=== PATIENT | male | born 1985 | race Caucasian/White ===

== ENCOUNTER 2018-04-29 12:18 | Emergency (ER) | payer MEDICARE, OTHER ==
[2018-04-29] MEDS ORDERED: ACETAMINOPHEN IV (For NPO) 1,000 MG in EMPTY BAG 1 BAG IVPB STA (12:22)
[2018-04-29] MEDS ORDERED: SODIUM CHLORIDE 0.9% 1,000 ML IV STA ×2 (12:22)
[2018-04-29] MEDS ORDERED: ceFAZolin 1,000 MG in DEXTROSE/WATER 1 50ML.BAG IVPB STA (12:22)
[2018-04-29] MEDS ORDERED: DIPH,PERTUS(ACELL)TETVAC-LF 0.5 ML VIAL IM ONE (12:22)
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
[2018-04-29 12:41] LABS: Glucose,Whole Blood 108 mg/dL (75-99)
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
[2018-04-29 13:05] LABS: Basophils % (A) 0 %; Eosinophils # (A) 0.5 k/uL (0-0.7); Eosinophils % (A) 7 %; HCT 36.8 % (39.0-53.0); HGB 12.8 gm/dL (13.0-17.5); Lymphocytes # (A) 1.7 k/uL (1.0-4.8); Lymphocytes % (A) 23 %; MCH 30.7 pg (25.0-35.0); MCHC 34.8 g/dL (31.0-37.0); MCV 88.2 fL (80.0-100.0); Monocytes # (A) 0.2 k/uL (0-1.0); Monocytes % (A) 3 %; Neutrophils # (A) 4.7 k/uL (1.3-7.7); Neutrophils % (A) 64 %; Platelet Count 134 k/uL (150-450); RBC 4.17 m/uL (4.30-5.90); RDW 12.8 % (11.5-15.5); WBC 7.3 k/uL (3.8-10.6)
[2018-04-29 13:14] LABS: ALT 45 U/L (21-72); AST 35 U/L (17-59); Albumin 3.8 g/dL (3.5-5.0); Alcohol <10 mg/dL; Alkaline Phosphatase 57 U/L (38-126); Amylase 70 U/L (30-110); Anion Gap 7 mmol/L; Blood Urea Nitrogen 13 mg/dL (9-20); Calcium 8.9 mg/dL (8.4-10.2); Carbon Dioxide 21 mmol/L (22-30); Chloride 111 mmol/L (98-107); Glucose 100 mg/dL (74-99); Lipase 29 U/L (23-300); Potassium 4.3 mmol/L (3.5-5.1); Sodium 139 mmol/L (137-145); Total Bilirubin 0.3 mg/dL (0.2-1.3); Total Protein 6.4 g/dL (6.3-8.2)
[2018-04-29 13:28] LABS: Creatine Kinase 74 U/L (55-170)
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
[2018-04-29] MEDS ORDERED: IBUPROFEN 800 MG TAB PO STA (13:38)
[2018-04-29] MEDS ORDERED: CEPHALEXIN 500 MG CAP PO STA (13:38)
[2018-04-29] MEDS ORDERED: ACETAMINOPHEN TAB 500 MG TAB PO STA (13:38)
[2018-04-29 13:41] LABS: Creatine Kinase MB 0.5 ng/mL (0.0-2.4); Troponin I <0.012 ng/mL (0.000-0.034)
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
[2018-04-29 14:11] VITALS: TEMP 98.2
[2018-04-29 14:13] LABS: Prothrombin Time 10.1 sec (9.0-12.0)
[2018-04-29 14:24] LABS: Partial Thromboplastin Time 21.3 sec (22.0-30.0)
--- NOTE | 2018-04-29 14:55 | XR ---
EXAMINATION TYPE: XR humerus LT DATE OF EXAM: 04/29/2018 COMPARISON: NONE HISTORY: Shoulder pain TECHNIQUE: 4 views FINDINGS: I see no fracture nor dislocation of the humerus. Glenohumeral joint is anatomic. Elbow mary nt appears intact. IMPRESSION: Normal left humerus.
--- NOTE | 2018-04-29 14:56 | XR ---
EXAMINATION TYPE: XR shoulder complete LT DATE OF EXAM: 04/29/2018 COMPARISON: NONE HISTORY: Shoulder pain TECHNIQUE: 3 views FINDINGS: There is nondisplaced comminuted midshaft fracture of the left clavicle. The glenohumeral j oint is anatomic. Scapula appears intact. IMPRESSION: Left clavicle comminuted fracture.
== END 2018-04-29 15:21 | disposition home or self-care (01) ==
LOC: EC 12:18
DX: S42.022A Displaced fracture of shaft of left clavicle, initial encounter for closed fracture (principal); S40.212A Abrasion of left shoulder, initial encounter; S70.312A Abrasion, left thigh, initial encounter; G40.909 Epilepsy, unspecified, not intractable, without status epilepticus; M79.7 Fibromyalgia; F41.9 Anxiety disorder, unspecified; Z23 Encounter for immunization; F17.210 Nicotine dependence, cigarettes, uncomplicated; Z79.899 Other long term (current) drug therapy; V23.4XXA Motorcycle driver injured in collision with car, pick-up truck or van in traffic accident, initial encounter; Y93.I9 Activity, other involving external motion; Y92.410 Unspecified street and highway as the place of occurrence of the external cause
CPT/HCPCS: 36415; 93005; 86900; 86901; 80053; 82150; 82550; 82553; 83605; 83690; 84484; 85025; 85610; 85730; 86850; 80320; 72170; 73030; 73060; 71045; 72125; 70450; 71250; 74176; 90715; 99285; 96365; 96375; 96361; 90471; J0690; J0131

== ENCOUNTER → 2023-10-06 | Outpatient (CLI) | payer MEDICARE, OTHER ==
[2023-10-06 15:39] LABS: HCT 40.1 % (39.6-50.0); HGB 13.4 g/dL (13.0-17.0); MCH 29.6 pg (27.0-32.0); MCHC 33.4 g/dL (32.0-37.0); MCV 88.5 FL (80.0-97.0); Mean Platelet Volume 12.7 FL (9.5-12.2); NRBC Per 100 WBC 0 X 10*3/uL (0.00-0.01); Platelet Count 166 X 10*3/uL (140-440); RBC 4.53 X 10*6/uL (4.40-5.60); RDW 13.1 % (11.5-14.5); WBC 5.37 X 10*3/uL (4.50-10.00)
[2023-10-06 16:54] LABS: Chol/HDL Ratio 3.94 Ratio; LDL Cholesterol,Calculated 75.6 mg/dL (0.0-131.0)
[2023-10-06 17:13] LABS: ALT 21 U/L (10-49); AST 30 U/L (14-35); Albumin 4.3 g/dL (3.8-4.9); Albumin/Globulin Ratio 1.48 Ratio (1.60-3.17); Alkaline Phosphatase 55 U/L (41-126); BUN/Creat Ratio 13.08 Ratio (12.00-20.00); Blood Urea Nitrogen 15.7 mg/dL (9.0-27.0); Calcium 9.5 mg/dL (8.7-10.3); Carbon Dioxide 20.7 mmol/L (21.6-31.8); Chloride 109 mmol/L (96-109); Globulin 2.9 g/dL (1.6-3.3); Glucose 89 mg/dL (70-110); Sodium 141 mmol/L (135-145); Total Bilirubin 0.4 mg/dL (0.3-1.2); Total Protein 7.2 g/dL (6.2-8.2)
== END | disposition home or self-care (01) ==
LOC: LABWHC1 09:20
PROVIDERS: ATTEND Family Medicine
DX: I10 Essential (primary) hypertension (principal); F11.20 Opioid dependence, uncomplicated
CPT/HCPCS: 36415; 80053; 80061; 85027

== ENCOUNTER → 2024-02-29 | Outpatient (CLI) | payer OTHER ==
--- NOTE | 2024-02-29 18:12 | XR ---
EXAMINATION TYPE: XR ankle complete LT DATE OF EXAM: 02/29/2024 COMPARISON: None HISTORY: Sprain TECHNIQUE: 3 view left ankle FINDINGS: No acute fracture or dislocation is evident. Ankle mortise is intact. Joint spaces are preserved. Soft tissues are normal. Follow up exams can be performed 7-10 days from acute trauma for continued pain IMPRESSION: 1. No acute osseous abnormality left ankle
--- NOTE | 2024-03-01 08:29 | XR ---
EXAMINATION TYPE: XR foot complete LT DATE OF EXAM: 02/29/2024 COMPARISON: None HISTORY: Sprain TECHNIQUE: 3 view left foot FINDINGS: No acute fracture or dislocation is evident. Joint spaces are preserved. Soft tissues are n ormal. Follow up exams can be performed 7-10 days from acute trauma for continued pain. IMPRESSION: 1. No acute osseous abnormality left foot
== END | disposition home or self-care (01) ==
LOC: RADXRMAIN 17:14
PROVIDERS: ATTEND Emergency Medicine
DX: S93.402A Sprain of unspecified ligament of left ankle, initial encounter (principal); S93.602A Unspecified sprain of left foot, initial encounter

== ENCOUNTER → 2024-03-21 | Outpatient (CLI) | payer MEDICARE, OTHER ==
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
== END | disposition home or self-care (01) ==
LOC: RADXRMAIN 15:48
PROVIDERS: ATTEND Emergency Medicine
DX: S93.402D Sprain of unspecified ligament of left ankle, subsequent encounter (principal); S93.602D Unspecified sprain of left foot, subsequent encounter

== ENCOUNTER 2024-03-31 12:32 | Observation (INO) | payer MEDICARE, OTHER ==
[2024-03-31] MEDS: LIDOCAINE 1%-EPI 1:100,000 20 ML VIAL SQ STA (13:14)
--- NOTE | 2024-03-31 13:21 | ED ---
General Adult HPI - General Chief complaint: Wound/Laceration Stated complaint: wrist laceration - L Time Seen by Provider: 03/31/24 13:19 Source: patient, EMS, RN notes reviewed Mode of arrival: EMS Limitations: no limitations - History of Present Illness Initial comments: 39-year-old male with a past medical history of IV drug abuse presented to the [facility] via EMS with a chief complaint of left wrist laceration. Patient states he would frequently inject in his left wrist and has a buildup of scar tissue in this area. He states 2 days ago while working on a vehicle he accidentally scraped the scar tissue and it started to excessively bleed. He has been applying pressure dressings. He states every time he would change the dressing blood with spray across the room. He states been consistently bleeding for the past 2 days brought him to the ER for evaluation. He denies any blood thinner use. He does state that his left hand started to swell up yesterday. He denies any fevers, chills,, lightheadedness, dizziness, chest pain, shortness of breath, abdominal pain or peripheral edema. - Related Data Home Medications Medication Instructions Recorded Confirmed Buprenorphine-Nalox 8-2 mg Tab 0.5 tab SUBLINGUAL DAILY@1200 03/31/24 03/31/24 [Suboxone 8-2 mg Tab] Buprenorphine-Nalox 8-2 mg Tab 1 tab PO BID 03/31/24 03/31/24 [Suboxone 8-2 mg Tab] Galcanezumab-Gnlm [Emgality Pen] 120 mg SQ DIRECTED 03/31/24 03/31/24 Latanoprost [Latanoprost 0.005%] 1 drop BOTH EYES HS 03/31/24 03/31/24 Naproxen Sodium [Aleve] 220 - 440 mg PO DAILY PRN 03/31/24 03/31/24 Pregabalin [Lyrica] 150 mg PO BID 03/31/24 03/31/24 Tylenol(Unknown Dose) 1 tab PO DAILY PRN 03/31/24 03/31/24 Allergies Allergy/AdvReac Type Severity Reaction Status Date / Time No Known Allergies Allergy Verified 03/31/24 13:28 Review of Systems ROS Statement: Those systems with pertinent positive or pertinent negative responses have been documented in the HPI. ROS Other: All systems not noted in ROS Statement are negative. Past Medical History Past Medical History: Fibromyalgia, Pneumonia, Seizure Disorder Additional Past Medical History / Comment(s): UMBILICAL HERNIA, SEIZURE DISORDER, STATES STOPPED TAKING DILANTIN, MIGRAINES, DEGENERATIVE DISC DISEASE, BULGING DISC History of Any Multi-Drug Resistant Organisms: None Reported Past Surgical History: No Surgical Hx Reported Additional Past Surgical History / Comment(s): VASECTOMY, umbilical hernia repair Past Anesthesia/Blood Transfusion Reactions: No Reported Reaction Past Psychological History: Anxiety, Depression Past Alcohol Use History: None Reported Past Drug Use History: None Reported - Past Family History Father Family Medical History: Unable to Obtain Mother Family Medical History: Unable to Obtain General Exam Limitations: no limitations General appearance: alert, in no apparent distress Respiratory exam: Present: normal lung sounds bilaterally. Absent: respiratory distress, wheezes, rales, rhonchi, stridor Cardiovascular Exam: Present: regular rate, normal rhythm, normal heart sounds. Absent: systolic murmur, diastolic murmur, rubs, gallop, clicks Extremities exam: Present: other (Arterial bleed to left radial artery. Significant pulsating active bleeding. Left hand edematous and erythematous. Patient has limited range of motion due to edema.) Neurological exam: Present: alert, oriented X3, CN II-XII intact Skin exam: Present: warm, dry, intact, normal color. Absent: rash Course Vital Signs 03/31/24 03/31/24 03/31/24 12:40 13:00 13:09 Temperature 99.0 F Pulse Rate 76 74 74 Respiratory 15 17 17 Rate Blood Pressure 103/60 103/60 113/71 O2 Sat by Pulse 99 98 98 Oximetry 03/31/24 03/31/24 03/31/24 13:30 14:29 14:30 Temperature 98.2 F Pulse Rate 73 77 70 Respiratory 17 17 16 Rate Blood Pressure 113/71 118/71 125/75 O2 Sat by Pulse 97 97 100 Oximetry 03/31/24 03/31/24 15:00 15:15 Temperature 98.5 F Pulse Rate 72 73 Respiratory 15 15 Rate Blood Pressure 128/75 121/73 O2 Sat by Pulse 99 98 Oximetry - Reevaluation(s) Reevaluation #1: 03/31/24 17:[address] Beltran by Dr. Lebron who advised on surgical intervention. Case dsiucssed with SAR[facility] Dr. Mccormack, for admission. Medical Decision Making - Medical Decision Making Was pt. sent in by a medical professional or institution (ROGERIO Beaver, SPECIAL EDUCATION SUPERVISOR, urgent care, hospital, or penitentiary...) When possible be specific @ -No Did you speak to anyone other than the patient for history (EMS, parent, family, police, friend...)? What history was obtained from this source @ -No Did you review nursing and triage notes (agree or disagree)? Why? @ -I reviewed and agree with nursing and triage notes Were old charts reviewed (outside hosp., previous admission, EMS record, old EKG, old radiological studies, urgent care reports/EKG's, penitentiary records)? Report findings @ -No old charts were reviewed Differential Diagnosis (chest pain, altered mental status, abdominal pain women, abdominal pain men, vaginal bleeding, weakness, fever, dyspnea, syncope, headache, dizziness, GI bleed, back pain, seizure, CVA, palpatations, mental health, musculoskeletal)? @ -Laceration, aneurysm, abrasion, cellulitis This list is not meant to be all-inclusive EKG interpreted by me (3pts min.). @ -None X-rays interpreted by me (1pt min.). @ -None done CT interpreted by me (1pt min.). @ -CTA left upper extremity significant for a hematoma in the area of the distal radius in the expected location of the radial artery. Poor bolus timing limits evaluation of the vessel. U/S interpreted by me (1pt. min.). @ -None done What testing was considered but not performed or refused? (CT, X-rays, U/S, labs)? Why? @ -None What meds were considered but not given or refused? Why? @ -None Did you discuss the management of the patient with other professionals (professionals i.e. ROGERIO Beaver, SPECIAL EDUCATION SUPERVISOR, lab, RT, psych nurse, clinical social worker, rehabilitation attendant, teacher, community service officer, briefcase sewer)? Give summary @ -Yes, Dr. Lebron discussed case with Dr. Beltran who advised on surgical intervention. I discussed this case with [facility], Dr. Mccormack who accepts admission. Was smoking cessation discussed for >3mins.? @ -No Was critical care preformed (if so, how long)? @ -No Were there social determinants of health that impacted care today? How? (Homelessness, low income, unemployed, alcoholism, drug addiction, transportation, low edu. Level, literacy, decrease access to med. care, skilled nursing, rehab)? @ -No Was there de-escalation of care discussed even if they declined (Discuss DNR or withdrawal of care, Hospice)? DNR status @ -No What co-morbidities impacted this encounter? (DM, HTN, Smoking, COPD, CAD, Cancer, CVA, ARF, Chemo, Hep., AIDS, mental health diagnosis, sleep apnea, morbid obesity)? @ -History of IV drug abuse currently on Suboxone Was patient admitted / discharged? Hospital course, mention meds given and route, prescriptions, significant lab abnormalities, going to OR and other pertinent info. @ -Patient went to the OR. 39-year-old male presented to the ER via EMS with a chief complaint of left wrist laceration. Patient has a past medical history significant of IV drug abuse and recently scraped area which has been persistently bleeding for the past 2 days. Patient in no signs of acute distress and nontoxic-appearing. Left upper extremity neurovascular intact. There is edema to left hand. Evaluation of "laceration" reveals a pulsating bleed believed to be arterial in nature. Lidocaine with epinephrine injected proximally without resolution of bleed. CTA left upper extremity significant for hematoma in the area of the distal radius in the expected location of the radial artery. Poor bolus timing limits evaluation of the vessel. Laboratories remarkable for a hemoglobin of 9.6. Coagulation within normal limits. Case discussed with on-call vascular, Dr. Beltran, who advised on surgical intervention. Patient will be admitted to medicine, per Dr. Beltran's request. Case discussed with Dr. Mccormack, [facility], for admission. Patient agreeable for surgical intervention. Patient taken to the OR and admitted for further treatment. Case discussed with ED attending, Dr. Lebron. Undiagnosed new problem with uncertain prognosis? @ -No Drug Therapy requiring intensive monitoring for toxicity (Heparin, Nitro, Insulin, Cardizem)? @ -No Were any procedures done? @ -No Diagnosis/symptom? @ -Radial artery hematoma rule out aneurysm Acute, or Chronic, or Acute on Chronic? @ -Acute Uncomplicated (without systemic symptoms) or Complicated (systemic symptoms)? @ -Complicated Side effects of treatment? @ -No Exacerbation, Progression, or Severe Exacerbation? @ -No Poses a threat to life or bodily function? How? (Chest pain, [place], [place], pneumonia, PE, COPD, DKA, ARF, appy, cholecystitis, CVA, Diverticulitis, Homicidal, Suicidal, threat to staff... and all critical care pts) @ -Yes, arterial bleed can lead to acute blood loss anemia which is life-threatening. - Lab Data Result diagrams: 03/31/24 13:36 03/31/24 13:36 Lab Results 03/31/24 03/31/24 03/31/24 Range/Units 13:36 13:36 13:36 WBC 7.6 (3.8-10.6) k/uL RBC 3.85 L (4.30-5.90) m/uL Hgb 9.6 L (13.0-17.5) gm/dL Hct 29.4 L (39.0-53.0) % MCV 76.2 L (80.0-100.0) fL MCH 24.9 L (25.0-35.0) pg MCHC 32.6 (31.0-37.0) g/dL RDW 15.1 (11.5-15.5) % Plt Count 270 (150-450) k/uL MPV 8.9 Neutrophils % 60 % Lymphocytes % 33 % Monocytes % 3 % Eosinophils % 2 % Basophils % 0 % Neutrophils # 4.5 (1.3-7.7) k/uL Lymphocytes # 2.5 (1.0-4.8) k/uL Monocytes # 0.2 (0-1.0) k/uL Eosinophils # 0.2 (0-0.7) k/uL Basophils # 0.0 (0-0.2) k/uL Hypochromasia Moderate Microcytosis Slight PT 10.0 (10.0-12.5) sec INR 0.9 (<1.2) APTT 23.5 (22.0-30.0) sec Sodium 138 (137-145) mmol/L Potassium 4.7 (3.5-5.1) mmol/L Chloride 106 (98-107) mmol/L Carbon Dioxide 24 (22-30) mmol/L Anion Gap 8 mmol/L BUN 15 (9-20) mg/dL Creatinine 0.92 (0.66-1.25) mg/dL Est GFR (CKD-EPI)AfAm >90 (>60 ml/min/1.73 sqM) Est GFR (CKD-EPI)NonAf >90 (>60 ml/min/1.73 sqM) Glucose 108 H (74-99) mg/dL Calcium 9.5 (8.4-10.2) mg/dL Total Bilirubin 0.4 (0.2-1.3) mg/dL AST 29 (17-59) U/L ALT 26 (4-49) U/L Alkaline Phosphatase 76 (38-126) U/L Total Protein 8.0 (6.3-8.2) g/dL Albumin 4.6 (3.5-5.0) g/dL Blood Type Blood Type Recheck Bld Type Recheck Status Antibody Screen Spec Expiration Date 03/31/24 Range/Units 13:36 WBC (3.8-10.6) k/uL RBC (4.30-5.90) m/uL Hgb (13.0-17.5) gm/dL Hct (39.0-53.0) % MCV (80.0-100.0) fL MCH (25.0-35.0) pg MCHC (31.0-37.0) g/dL RDW (11.5-15.5) % Plt Count (150-450) k/uL MPV Neutrophils % % Lymphocytes % % Monocytes % % Eosinophils % % Basophils % % Neutrophils # (1.3-7.7) k/uL Lymphocytes # (1.0-4.8) k/uL Monocytes # (0-1.0) k/uL Eosinophils # (0-0.7) k/uL Basophils # (0-0.2) k/uL Hypochromasia Microcytosis PT (10.0-12.5) sec INR (<1.2) APTT (22.0-30.0) sec Sodium (137-145) mmol/L Potassium (3.5-5.1) mmol/L Chloride (98-107) mmol/L Carbon Dioxide (22-30) mmol/L Anion Gap mmol/L BUN (9-20) mg/dL Creatinine (0.66-1.25) mg/dL Est GFR (CKD-EPI)AfAm (>60 ml/min/1.73 sqM) Est GFR (CKD-EPI)NonAf (>60 ml/min/1.73 sqM) Glucose (74-99) mg/dL Calcium (8.4-10.2) mg/dL Total Bilirubin (0.2-1.3) mg/dL AST (17-59) U/L ALT (4-49) U/L Alkaline Phosphatase (38-126) U/L Total Protein (6.3-8.2) g/dL Albumin (3.5-5.0) g/dL Blood Type AB Positive Blood Type Recheck AB Pos Bld Type Recheck Status No Antibody Screen NEGATIVE Spec Expiration Date 04/03/20242335 - Radiology Data Radiology results: report reviewed, image reviewed Disposition Clinical Impression: Hematoma of vascular access site Disposition: ADMITTED IP TO THIS [facility] Condition: Stable Time of Disposition: 15:25
[2024-03-31 13:46] LABS: Basophils % (A) 0 %; Eosinophils # (A) 0.2 k/uL (0-0.7); Eosinophils % (A) 2 %; HCT 29.4 % (39.0-53.0); HGB 9.6 gm/dL (13.0-17.5); Hypochromasia Moderate; Lymphocytes # (A) 2.5 k/uL (1.0-4.8); Lymphocytes % (A) 33 %; MCH 24.9 pg (25.0-35.0); MCHC 32.6 g/dL (31.0-37.0); MCV 76.2 fL (80.0-100.0); Mean Platelet Volume 8.9; Microcytosis Slight; Monocytes # (A) 0.2 k/uL (0-1.0); Monocytes % (A) 3 %; Neutrophils # (A) 4.5 k/uL (1.3-7.7); Neutrophils % (A) 60 %; Platelet Count 270 k/uL (150-450); RBC 3.85 m/uL (4.30-5.90); RDW 15.1 % (11.5-15.5); WBC 7.6 k/uL (3.8-10.6)
[2024-03-31 13:54] LABS: ALT 26 U/L (4-49); AST 29 U/L (17-59); African American GFR (CKD) >90 (>60 ml/min/1.73 sqM); Albumin 4.6 g/dL (3.5-5.0); Alkaline Phosphatase 76 U/L (38-126); Anion Gap 8 mmol/L; Blood Urea Nitrogen 15 mg/dL (9-20); Calcium 9.5 mg/dL (8.4-10.2); Carbon Dioxide 24 mmol/L (22-30); Chloride 106 mmol/L (98-107); Glucose 108 mg/dL (74-99); Non-African American GFR(CKD) >90 (>60 ml/min/1.73 sqM); Potassium 4.7 mmol/L (3.5-5.1); Sodium 138 mmol/L (137-145); Total Bilirubin 0.4 mg/dL (0.2-1.3)
[2024-03-31 13:56] LABS: INR 0.9 (<1.2); Partial Thromboplastin Time 23.5 sec (22.0-30.0)
--- NOTE | 2024-03-31 14:43 | CT ---
EXAMINATION TYPE: CT angio forearm LT CT DLP: 92.9 mGycm, Automated exposure control for dose reduction was used. DATE OF EXAM: 03/31/2024 2:17 PM COMPARISON: None CLINICAL INDICATION:Male, 39 years old with history of radial artery hemorrhage, LT wrist laceration 2 days ago, radial artery hemorrhage. TECHNIQUE: Axial images were obtained of the CT angio forearm LT, Additional coronal and sagittal ref ormatted images and soft tissue and bone window were obtained for review. 3-D reconstruction was abdullahi silverman on a separate workstation. Contrast used:100 ml mL of Isovue 370 with IV Contrast, (None if empty) Oral contrast used: (None if empty) FINDINGS: The Ulnar artery and brachial artery we are visualized appear patent. There is poor visuali zation of the distal ulnar artery due to bolus timing and small diameter vessel. A Hematoma is near the distal forearm on the radial side of the wrist. The radial artery which extend s into this region is not opacified with IV contrast which could be due to bolus timing versus occlus ion. Soft tissue laceration is present. No evidence for radiopaque foreign body. No evidence of fract ure. IMPRESSION: Hematoma in the area of the distal right radius in the expected location of the radial artery. Poor b olus timing limits evaluation of the vessel. Correlate with ultrasound Doppler imaging.
[2024-03-31] MEDS: LACTATED RINGERS 1,000 ML IV ONE ×2 (15:28→16:28)
[2024-03-31] MEDS: ceFAZolin 1,000 MG VIAL IVPB ONE ×2 (15:28→16:28)
[2024-03-31] MEDS ORDERED: NALOXONE 0.4 MG/ML 1 ML VIAL IV PRN (15:33)
--- NOTE | 2024-03-31 15:38 | P.GSCN ---
History of Present Illness Consult date: 03/31/24 History of present illness: Juan is a 39-year-old male with a past medical history including IV drug abuse currently on Suboxone therapy. He historically used to use his left wrist as an injection site. He states that always been some kind of lump in that area he thought was due to scar tissue. A few days ago he was cleaning something or a machine and ended up knocking it causing her to be a scab forming after some bleeding. He stated this was doing well but then he was in a heated conversation over the phone with someone which then he noticed an increase in s shanell bleeding from the wound itself. He held the pressure dressing on this for the past few days and decided to come in today as it was not getting any better and every time he went to change dressing it was still bleed. He denies any chest pains or shortness of breath. He denies any IV drug abuse. He does smoke cigarettes. He is anxious. Past Medical History Past Medical History: Fibromyalgia, Pneumonia, Seizure Disorder Additional Past Medical History / Comment(s): UMBILICAL HERNIA, SEIZURE DISORDER, STATES STOPPED TAKING DILANTIN, MIGRAINES, DEGENERATIVE DISC DISEASE, BULGING DISC History of Any Multi-Drug Resistant Organisms: None Reported Past Surgical History: No Surgical Hx Reported Additional Past Surgical History / Comment(s): VASECTOMY, umbilical hernia repair Past Anesthesia/Blood Transfusion Reactions: No Reported Reaction Past Psychological History: Anxiety, Depression Past Alcohol Use History: None Reported Past Drug Use History: None Reported - Past Family History Father Family Medical History: Unable to Obtain Mother Family Medical History: Unable to Obtain Medications and Allergies Home Medications Medication Instructions Recorded Confirmed Type Buprenorphine-Nalox 8-2 mg Tab 0.5 tab SUBLINGUAL DAILY@1200 03/31/24 03/31/24 History [Suboxone 8-2 mg Tab] Buprenorphine-Nalox 8-2 mg Tab 1 tab PO BID 03/31/24 03/31/24 History [Suboxone 8-2 mg Tab] Galcanezumab-Gnlm [Emgality Pen] 120 mg SQ DIRECTED 03/31/24 03/31/24 History Latanoprost [Latanoprost 0.005%] 1 drop BOTH EYES HS 03/31/24 03/31/24 History Naproxen Sodium [Aleve] 220 - 440 mg PO DAILY PRN 03/31/24 03/31/24 History Pregabalin [Lyrica] 150 mg PO BID 03/31/24 03/31/24 History Tylenol(Unknown Dose) 1 tab PO DAILY PRN 03/31/24 03/31/24 History Allergies Allergy/AdvReac Type Severity Reaction Status Date / Time No Known Allergies Allergy Verified 03/31/24 13:28 Surgical - Exam Vital Signs Temp Pulse Resp BP Pulse Ox 99.0 F 76 15 103/60 99 03/31/24 12:40 03/31/24 12:40 03/31/24 12:40 03/31/24 12:40 03/31/24 12:40 General is a pleasant cooperative thin male in no acute distress. Anxious. Heart is tachycardic but regular. Lungs are clear. Abdomen is soft. Extremities show no clubbing, cyanosis or edema. Left wrist wrapped with a pressure dressing. Mild edema in the hand. Adequate capillary refill in the fingers. Motor or sensory intact to the hand. Results CT scan reviewed. Difficulty in visualization of perfusion due to poorly timed contrast - Labs 03/31/24 13:36 03/31/24 13:36 Abnormal Lab Results - Last 24 Hours (Table) 03/31/24 03/31/24 Range/Units 13:36 13:36 RBC 3.85 L (4.30-5.90) m/uL Hgb 9.6 L (13.0-17.5) gm/dL Hct 29.4 L (39.0-53.0) % MCV 76.2 L (80.0-100.0) fL MCH 24.9 L (25.0-35.0) pg Glucose 108 H (74-99) mg/dL Diabetes panel 03/31/24 Range/Units 13:36 Sodium 138 (137-145) mmol/L Potassium 4.7 (3.5-5.1) mmol/L Chloride 106 (98-107) mmol/L Carbon Dioxide 24 (22-30) mmol/L BUN 15 (9-20) mg/dL Creatinine 0.92 (0.66-1.25) mg/dL Glucose 108 H (74-99) mg/dL Calcium 9.5 (8.4-10.2) mg/dL AST 29 (17-59) U/L ALT 26 (4-49) U/L Alkaline Phosphatase 76 (38-126) U/L Total Protein 8.0 (6.3-8.2) g/dL Albumin 4.6 (3.5-5.0) g/dL Calcium panel 03/31/24 Range/Units 13:36 Calcium 9.5 (8.4-10.2) mg/dL Albumin 4.6 (3.5-5.0) g/dL Pituitary panel 03/31/24 Range/Units 13:36 Sodium 138 (137-145) mmol/L Potassium 4.7 (3.5-5.1) mmol/L Chloride 106 (98-107) mmol/L Carbon Dioxide 24 (22-30) mmol/L BUN 15 (9-20) mg/dL Creatinine 0.92 (0.66-1.25) mg/dL Glucose 108 H (74-99) mg/dL Calcium 9.5 (8.4-10.2) mg/dL Adrenal panel 03/31/24 Range/Units 13:36 Sodium 138 (137-145) mmol/L Potassium 4.7 (3.5-5.1) mmol/L Chloride 106 (98-107) mmol/L Carbon Dioxide 24 (22-30) mmol/L BUN 15 (9-20) mg/dL Creatinine 0.92 (0.66-1.25) mg/dL Glucose 108 H (74-99) mg/dL Calcium 9.5 (8.4-10.2) mg/dL Total Bilirubin 0.4 (0.2-1.3) mg/dL AST 29 (17-59) U/L ALT 26 (4-49) U/L Alkaline Phosphatase 76 (38-126) U/L Total Protein 8.0 (6.3-8.2) g/dL Albumin 4.6 (3.5-5.0) g/dL Assessment and Plan Assessment: Left radial artery injury Likely left radial artery pseudoaneurysm versus aneurysm History of IV drug abuse Plan: Plan for radial artery exploration in the OR. Discussed multiple options with the patient including primary ligation versus repair versus bypass with vein harvest. Discussed that this will depend on the area, the injury and the perfus ion to the hand. Discussed that there is some risk of loss of limb as well as cardiopulmonary issues with anesthesia. He seemingly understands and although is anxious he is willing to proceed.
[2024-03-31] MEDS ORDERED: PROPOFOL 10 MG/ML 20 ML VIAL IV ONE (16:28)
[2024-03-31] MEDS ORDERED: fentaNYL (PF) 50 MCG/ML 2 ML AMP ONE (16:28)
[2024-03-31] MEDS ORDERED: LIDOCAINE 1% INJ 10MG/ML (20 ML MDV) ONE (16:28)
[2024-03-31] MEDS ORDERED: ROCURONIUM 10 MG/ML (5 ML VIAL) IV ONE (16:28)
[2024-03-31] MEDS ORDERED: SUCCINYLCHOLINE CHLORIDE 200 MG/10 ML VIAL IV ONE (16:28)
[2024-03-31] MEDS ORDERED: MIDAZOLAM 2 MG/2 ML VIAL ONE (16:28)
[2024-03-31] MEDS: HEPARIN SODIUM (1,000 UNIT/ML) 2,000 UNIT in SODIUM CHLORIDE 0.9% 1,000 ML IRRIGATION ONE (16:50)
[2024-03-31] MEDS: ceFAZolin 1,000 MG in SODIUM CHLORIDE 0.9% 1,000 ML IRRIGATION ONE (16:50)
[2024-03-31] MEDS: LIDOCAINE 1% INJ 10MG/ML (20 ML MDV) SQ ONE ×2 (17:23)
[2024-03-31] MEDS ORDERED: ACETAMINOPHEN TAB 325 MG TAB PO PRN (17:38)
--- NOTE | 2024-03-31 17:38 | P.OP ---
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 EBL: 25 cc IV fluids: See records Urine output: Not measured Drains: None Complications: None immediately apparent Condition: Stable to recovery Operative indication and findings: Patient is a 39-year-old male who has history of IV drug abuse utilizing a left radial access point as his normal access. He states that his not been recently however recently he did have an injury to the area and subsequently had continued bleeding from this. He is always had a bulge at the area and presented today with complications of this with bleeding. Risk and benefits were discussed with him as well as the plan. He similar symptoms willing to proceed. Procedure in detail: Patient was taken to the operative suite placed in supine position. The left upper extremity was prepped and draped in usual sterile fashion. A preprocedural timeout was performed and all parties were in agreement. Upon visualization of the area it became obvious that there was a large ulceration in the skin approximately 1.5 cm with overlying pseudoaneurysm and punctate laceration to the pseudoaneurysm causing bleeding. Manual pressure was held and the area proximally and distally to the ulceration was enlarged. The dissection was tediously and carefully carried down to the level of the radial artery and proximal and distal control was obtained. The Doppler was utilized and there was found to be multiphasic flow at the distal radial artery beyond the area of occlusion with brisk capillary refill through the fingers and a palpable ulnar pulse. Due to this the decision was made to resect the area of pseudoaneurysm. Suture ligation with 3-0 silk was performed. The area was then copiously irrigated with antibiotic solution the ulcerated portion of the skin was excised due to nonviability of the edges of the tissue and freshened up. Then utilizing 3-0 Vicryl and 3-0 nylon in multilayer fashion the wound was closed with interrupted sutures. A dressing was placed and the patient was allowed to transfer to recovery in stable condition having tolerated the procedure well.
[2024-03-31] MEDS: MORPHINE SULFATE 4 MG/ML SYRINGE IV PRN (18:49)
[2024-04-01 07:43] VITALS: RESP 16; TEMP 97.9
[2024-04-01] MEDS: HYDROcodone/APAP 5-325MG 1 EACH TAB PO PRN (08:50)
--- NOTE | 2024-04-01 10:08 | P.PN ---
Subjective Progress Note Date: 04/01/24 Principal diagnosis: Left radial artery pseudoaneurysm with ulceration Patient is seen and examined today as a follow-up. Yesterday he underwent left radial artery exploration with control of hemorrhage. Left radial artery pseudoaneurysm resection and resection of the left wrist ulceration and bilateral layer complex wound closure. Today patient states he has pain to that left wrist. Objective - Vital Signs Vital signs: Vital Signs Temp 97.9 F 04/01/24 07:41 Pulse 77 04/01/24 07:41 Resp 16 04/01/24 07:41 BP 82/54 04/01/24 07:41 Pulse Ox 93 L 04/01/24 07:41 FiO2 Intake & Output 03/31/24 04/01/24 04/01/24 18:59 06:59 18:59 Intake Total 802 Output Total 25 Balance 777 Weight 63.503 kg Intake: IV 802 Output: Estimated Blood Loss 25 - Labs CBC & Chem 7: 03/31/24 13:36 03/31/24 13:36 Labs: Abnormal Lab Results - Last 24 Hours (Table) 03/31/24 03/31/24 Range/Units 13:36 13:36 RBC 3.85 L (4.30-5.90) m/uL Hgb 9.6 L (13.0-17.5) gm/dL Hct 29.4 L (39.0-53.0) % MCV 76.2 L (80.0-100.0) fL MCH 24.9 L (25.0-35.0) pg Glucose 108 H (74-99) mg/dL Assessment and Plan Assessment: 1. 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 Left radial artery exploration with control of hemorrhage. Left radial artery pseudoaneurysm resection, resection of left wrist ulceration and bilayer complex wound closure 3. IV drug use Plan: 1. Daily dressing change with nonadherent dressing and Kerlix 2. Postop instructions reviewed with patient and are included in discharge plan 3. Recommend smoking cessation 4. Recommend abstinence of IV drug use Thank you for this consultation, patient is cleared from vascular surgery for discharge. He has to follow-up in 1 week. The impression and plan of care has been dictated as directed. I performed a history and examination of this patient, discussed the same with the dictator. I agree with the dictator's note ,documented as a scribe. Any additional findings or plans will be noted.
[2024-04-01] MEDS: NICOTINE 14MG/24HR PATCH TRANSDERM SCH (10:40)
[2024-04-01 11:16] VITALS: BP 98/58; PULSE 75
--- NOTE | 2024-04-01 12:24 | P.HPIM ---
History of Present Illness 39-year-old male with history of IV drug use was admitted for left radial artery injury and bleeding from that area patient underwent left leg radial artery exploration in the OR, and her hemorrhage was controlled and patient had a pse udoaneurysm which was resected and patient is being discharged today. REVIEW OF SYSTEMS: All other systems are negative except those mentioned in the HPI PHYSICAL EXAMINATION: GENERAL: The patient is alert and oriented x3, not in any acute distress. Well developed, well nourished. HEENT: Pupils are round and equally reacting to light. EOMI. No scleral icterus. No conjunctival pallor. Normocephalic, atraumatic. No pharyngeal erythema. No thyromegaly. CARDIOVASCULAR: S1 and S2 present. No murmurs, rubs, or gallops. PULMONARY: Chest is clear to auscultation, no wheezing or crackles. ABDOMEN: Soft, nontender, nondistended, normoactive bowel sounds. No palpable organomegaly. MUSCULOSKELETAL: No joint swelling or deformity. EXTREMITIES: No cyanosis, clubbing, or pedal edema. Patient right wrist is surgically packed NEUROLOGICAL: Gross neurological examination did not reveal any focal deficits. SKIN: No rashes. Assessment and plan -Radial artery injury status post exploration repair. Patient was discharged today -History of IV drug use counseling was provided patient will need hepatitis testing as an outpatient -Fibromyalgia -Seizure disorder but patient does not use any antiseizure medications nicotine use: Counseling was provided -Depression Patient will be discharged today Past Medical History Past Medical History: Fibromyalgia, Pneumonia, Seizure Disorder Additional Past Medical History / Comment(s): UMBILICAL HERNIA, SEIZURE DISORDER, STATES STOPPED TAKING DILANTIN, MIGRAINES, DEGENERATIVE DISC DISEASE, BULGING DISC History of Any Multi-Drug Resistant Organisms: None Reported Past Surgical History: No Surgical Hx Reported Additional Past Surgical History / Comment(s): VASECTOMY, umbilical hernia repai r Past Anesthesia/Blood Transfusion Reactions: No Reported Reaction Past Psychological History: Anxiety, Depression Smoking Status: Current every day smoker Past Alcohol Use History: None Reported Additional Past Alcohol Use History / Comment(s): STARTED SMOKING AT AT AGE 8 SMOKES 1PPD, SMOKING CESSATION BOOKLET GIVEN TO PT,. Past Drug Use History: None Reported - Past Family History Father Family Medical History: Unable to Obtain Mother Family Medical History: Unable to Obtain Medications and Allergies Home Medications Medication Instructions Recorded Confirmed Type Buprenorphine-Nalox 8-2 mg Tab 0.5 tab SUBLINGUAL DAILY@1200 03/31/24 03/31/24 History [Suboxone 8-2 mg Tab] Buprenorphine-Nalox 8-2 mg Tab 1 tab PO BID 03/31/24 03/31/24 History [Suboxone 8-2 mg Tab] Galcanezumab-Gnlm [Emgality Pen] 120 mg SQ DIRECTED 03/31/24 03/31/24 History Latanoprost [Latanoprost 0.005%] 1 drop BOTH EYES HS 03/31/24 03/31/24 History Naproxen Sodium [Aleve] 220 - 440 mg PO DAILY PRN 03/31/24 03/31/24 History Pregabalin [Lyrica] 150 mg PO BID 03/31/24 03/31/24 History Tylenol(Unknown Dose) 1 tab PO DAILY PRN 03/31/24 03/31/24 History Allergies Allergy/AdvReac Type Severity Reaction Status Date / Time No Known Allergies Allergy Verified 03/31/24 13:28 Physical Exam Vitals: Vital Signs Temp Pulse Pulse Resp BP BP Pulse Ox 04/01/24 11:00 75 98/58 04/01/24 08:00 16 04/01/24 07:41 97.9 F 77 16 82/54 93 L 04/01/24 02:00 98.4 F 80 15 124/72 98 03/31/24 20:24 82 124/75 99 03/31/24 19:53 79 123/80 99 03/31/24 19:24 73 130/82 03/31/24 18:41 61 140/71 99 03/31/24 18:24 98.0 F 66 128/74 03/31/24 18:15 77 16 162/76 100 03/31/24 18:00 89 16 133/70 97 03/31/24 17:45 98 F 98 16 138/76 100 03/31/24 15:15 98.5 F 73 15 121/73 98 03/31/24 15:00 72 15 128/75 99 03/31/24 14:30 70 16 125/75 100 03/31/24 14:29 98.2 F 77 17 118/71 97 03/31/24 13:30 73 17 113/71 97 03/31/24 13:09 74 17 113/71 98 03/31/24 13:00 74 17 103/60 98 03/31/24 12:40 99.0 F 76 15 103/60 99 Intake and Output 03/31/24 04/01/24 04/01/24 22:59 06:59 14:59 Intake Total 802 0 Output Total 25 Balance 777 0 Intake: IV 802 Oral 0 Output: Estimated Blood Loss 25 Other: Voiding Method Toilet Weight 63.503 kg Results CBC & Chem 7: 03/31/24 13:36 03/31/24 13:36 Labs: Abnormal Lab Results - Last 24 Hours (Table) 03/31/24 03/31/24 Range/Units 13:36 13:36 RBC 3.85 L (4.30-5.90) m/uL Hgb 9.6 L (13.0-17.5) gm/dL Hct 29.4 L (39.0-53.0) % MCV 76.2 L (80.0-100.0) fL MCH 24.9 L (25.0-35.0) pg Glucose 108 H (74-99) mg/dL Thrombosis Risk Factor Assmnt - Choose All That Apply Each Factor Represents 1 point: Age 41-60 years Each Risk Factor Represents 2 Points: Major surgery Thrombosis Risk Factor Assessment Total Risk Factor Score: 3 Thrombosis Risk Factor Assessment Level: Moderate Risk
--- NOTE | 2024-04-01 12:25 | P.DS ---
Providers Date of admission: 03/31/24 15:29 Attending physician: Amna Tapia Consults: 03/31/24 15:37 Consult Physician Urgent Consulting Provider: Kelsey Beltran Consult Reason/Comments: radial artery hematoma Do you want consulting provider notified?: Already Contacted Primary care physician: Stated None Hospital Course: 39-year-old male with history of IV drug use was admitted for left radial artery injury and bleeding from that area patient underwent left leg radial artery exploration in the OR, and her hemorrhage was controlled and patient had a pseudoaneurysm which was resected and patient is being discharged today. PHYSICAL EXAMINATION: GENERAL: The patient is alert and oriented x3, not in any acute distress. Well developed, well nourished. HEENT: Pupils are round and equally reacting to light. EOMI. No scleral icterus. No conjunctival pallor. Normocephalic, atraumatic. No pharyngeal erythema. No thyromegaly. CARDIOVASCULAR: S1 and S2 present. No murmurs, rubs, or gallops. PULMONARY: Chest is clear to auscultation, no wheezing or crackles. ABDOMEN: Soft, nontender, nondistended, normoactive bowel sounds. No palpable organomegaly. MUSCULOSKELETAL: No joint swelling or deformity. EXTREMITIES: No cyanosis, clubbing, or pedal edema. Patient right wrist is surgically packed NEUROLOGICAL: Gross neurological examination did not reveal any focal deficits. SKIN: No rashes. Assessment and plan -Radial artery injury status post exploration repair. Patient was discharged today -History of IV drug use counseling was provided patient will need hepatitis giovanni ting as an outpatient -Fibromyalgia -Seizure disorder but patient does not use any antiseizure medications nicotine use: Counseling was provided -Depression Patient will be discharged today Patient Condition at Discharge: Stable Plan - Discharge Summary New Discharge Prescriptions: No Action Pregabalin [Lyrica] 150 mg PO BID Naproxen Sodium [Aleve] 220 - 440 mg PO DAILY PRN PRN Reason: Pain Galcanezumab-Gnlm [Emgality Pen] 120 mg SQ DIRECTED Buprenorphine-Nalox 8-2 mg Tab [Suboxone 8-2 mg Tab] 1 tab PO BID Latanoprost [Latanoprost 0.005%] 1 drop BOTH EYES HS Buprenorphine-Nalox 8-2 mg Tab [Suboxone 8-2 mg Tab] 0.5 tab SUBLINGUAL DAILY@1200 Tylenol(Unknown Dose) 1 tab PO DAILY PRN PRN Reason: Pain Discharge Medication List Buprenorphine-Nalox 8-2 mg Tab [Suboxone 8-2 mg Tab] 0.5 tab SUBLINGUAL DAILY@1200 03/31/24 [History] Buprenorphine-Nalox 8-2 mg Tab [Suboxone 8-2 mg Tab] 1 tab PO BID 03/31/24 [History] Galcanezumab-Gnlm [Emgality Pen] 120 mg SQ DIRECTED 03/31/24 [History] Latanoprost [Latanoprost 0.005%] 1 drop BOTH EYES HS 03/31/24 [History] Naproxen Sodium [Aleve] 220 - 440 mg PO DAILY PRN 03/31/24 [History] Pregabalin [Lyrica] 150 mg PO BID 03/31/24 [History] Tylenol(Unknown Dose) 1 tab PO DAILY PRN 03/31/24 [History] Follow up Appointment(s)/Referral(s): Kelsey Beltran DO [STAFF PHYSICIAN] - 04/10/24 11:15 am None,Stated [Primary Care Provider] - 1-2 days Activity/Diet/Wound Care/Special Instructions: Off work March 31 No heavy lifting No tub bathing, swimming. May shower. Watch area for signs of infection Dressing change with nonadherent dressing, wrap with Kerlix May use Tylenol or Motrin for pain as needed Discharge Disposition: HOME SELF-CARE
== END 2024-04-01 12:37 | disposition home or self-care (01) ==
LOC: EC 12:32 → 6NMEDSUR 15:29
PROVIDERS: ADMIT Hospitalist; ATTEND Hospitalist
DX: I72.1 Aneurysm of artery of upper extremity (principal); L98.499 Non-pressure chronic ulcer of skin of other sites with unspecified severity; S61.512A Laceration without foreign body of left wrist, initial encounter; W26.9XXA Contact with unspecified sharp object(s), initial encounter; M79.7 Fibromyalgia; G40.909 Epilepsy, unspecified, not intractable, without status epilepticus; F32.A Depression, unspecified; F41.9 Anxiety disorder, unspecified; F17.210 Nicotine dependence, cigarettes, uncomplicated; Z79.899 Other long term (current) drug therapy
CPT/HCPCS: 96376 ×2; 96374; 99285; 36415; 86900; 86901; 88304; 80053; 85025; 85610; 85730; 86850; 73206; 35045; G0378 ×2; S4990; J2250; J0330; J2270 ×2; J0690; J2001; J3010; J1644; J2704; Q9967

== ENCOUNTER 2024-05-14 12:19 | Inpatient (IN) | payer MEDICARE, OTHER ==
--- NOTE | 2024-05-14 13:34 | ED ---
General Adult HPI - General Source: patient, RN notes reviewed Mode of arrival: ambulatory Limitations: no limitations <Colin Briggs - Last Filed: 05/14/24 13:32> <Arnold Stinson - Last Filed: 05/14/24 17:20> - General Chief complaint: Skin/Abscess/Foreign Body Stated complaint: staff infection/poss mersa Time Seen by Provider: 05/14/24 12:39 - History of Present Illness Initial comments: 39-year-old male presents emergency department complaint of skin infection. Patient states he was on doxycycline states he was switched to Keflex and Bactrim as he was not tolerating the doxycycline. Patient complains of sores on his left leg lower and upper. Patient states this was self-induced from injecting "dope". Patient states that he just generally does not feel well he has had some shortness of breath. Patient denies any abdominal complaints no dysuria no URI symptoms. (Colin Briggs) - Related Data Home Medications Medication Instructions Recorded Confirmed Buprenorphine-Nalox 8-2 mg Tab 0.5 tab SUBLINGUAL DAILY@1200 03/31/24 05/14/24 [Suboxone 8-2 mg Tab] Buprenorphine-Nalox 8-2 mg Tab 1 tab PO BID 03/31/24 05/14/24 [Suboxone 8-2 mg Tab] Galcanezumab-Gnlm [Emgality Pen] 120 mg SQ QMONTHLY 03/31/24 05/14/24 Latanoprost [Latanoprost 0.005%] 1 drop BOTH EYES HS 03/31/24 05/14/24 Pregabalin [Lyrica] 150 mg PO BID 03/31/24 05/14/24 Cephalexin [Keflex] 500 mg PO QID 05/14/24 05/14/24 Sulfamethox-Tmp 800-160Mg [Bactrim 1 tab PO BID 05/14/24 05/14/24 DS 800-160 mg] Allergies Allergy/AdvReac Type Severity Reaction Status Date / Time No Known Allergies Allergy Verified 05/14/24 15:29 Review of Systems ROS Other: All systems not noted in ROS Statement are negative. <Colin Briggs - Last Filed: 05/14/24 13:32> ROS Other: All systems not noted in ROS Statement are negative. <Arnold Stinson - Last Filed: 05/14/24 17:20> ROS Statement: Those systems with pertinent positive or pertinent negative responses have been documented in the HPI. Past Medical History Past Medical History: Fibromyalgia, Pneumonia, Seizure Disorder Additional Past Medical History / Comment(s): UMBILICAL HERNIA, SEIZURE DISORDER, STATES STOPPED TAKING DILANTIN, MIGRAINES, DEGENERATIVE DISC DISEASE, BULGING DISC History of Any Multi-Drug Resistant Organisms: None Reported Past Surgical History: No Surgical Hx Reported Additional Past Surgical History / Comment(s): VASECTOMY, umbilical hernia repair Past Anesthesia/Blood Transfusion Reactions: No Reported Reaction Past Psychological History: Anxiety, Depression Smoking Status: Current every day smoker Past Alcohol Use History: None Reported Past Drug Use History: None Reported - Past Family History Father Family Medical History: Unable to Obtain Mother Family Medical History: Unable to Obtain <Colin Briggs - Last Filed: 05/14/24 13:32> General Exam Limitations: no limitations General appearance: alert, in no apparent distress Head exam: Present: atraumatic, normocephalic, normal inspection Eye exam: Present: normal appearance, PERRL, EOMI. Absent: scleral icterus, conjunctival injection, periorbital swelling ENT exam: Present: normal exam, mucous membranes moist Neck exam: Present: normal inspection. Absent: tenderness, meningismus, lymphadenopathy Respiratory exam: Present: normal lung sounds bilaterally. Absent: respiratory distress, wheezes, rales, rhonchi, stridor Cardiovascular Exam: Present: normal rhythm, tachycardia, normal heart sounds. Absent: systolic murmur, diastolic murmur, rubs, gallop, clicks GI/Abdominal exam: Present: soft, normal bowel sounds. Absent: distended, tenderness, guarding, rebound, rigid Extremities exam: Present: other (two healing sores left lower leg erythematous) <Colin Briggs - Last Filed: 05/14/24 13:32> Course Vital Signs 05/14/24 05/14/24 12:35 13:27 Temperature 100.8 F H 99.9 F H Pulse Rate 113 H 93 Respiratory 20 16 Rate Blood Pressure 96/55 102/62 O2 Sat by Pulse 99 96 Oximetry Medical Decision Making - Lab Data Result diagrams: 05/14/24 13:21 05/14/24 13:21 <Arnold Stinson - Last Filed: 05/14/24 17:20> - Medical Decision Making Patient care signed out to be by physician patient observation assistant, Colin. Patient is a 39 IV drug user presents to the ER for fever. Plan at signout was to follow-up with pending labs Patient seen and evaluated at bedside at 5:19 PM. Laboratory evaluation obtained. No leukocytosis. Hemoglobin 8.7. Seems to be slowly diminishing since 2015. Metabolic panel within acceptable limits. Patient well-appearing at bedside. Patient admitted due to concerns of bacteremia given history of IV drug use. Case discussed with Dr. Mckeon who is willing to set patient's care on behalf of [facility]. Patient given broad-spectrum antibiotics. Blood cultures pending. (Arnold Stinson) - Lab Data Lab Results 05/14/24 05/14/24 05/14/24 Range/Units 13:21 13:21 13:21 WBC 7.5 (3.8-10.6) k/uL RBC 4.26 L (4.30-5.90) m/uL Hgb 8.7 L (13.0-17.5) gm/dL Hct 28.6 L (39.0-53.0) % MCV 67.2 L D (80.0-100.0) fL MCH 20.4 L (25.0-35.0) pg MCHC 30.3 L (31.0-37.0) g/dL RDW 16.2 H (11.5-15.5) % Plt Count 253 (150-450) k/uL MPV 7.9 Neutrophils % 66 % Lymphocytes % 24 % Monocytes % 5 % Eosinophils % 2 % Basophils % 0 % Neutrophils # 5.0 (1.3-7.7) k/uL Lymphocytes # 1.8 (1.0-4.8) k/uL Monocytes # 0.4 (0-1.0) k/uL Eosinophils # 0.2 (0-0.7) k/uL Basophils # 0.0 (0-0.2) k/uL Hypochromasia Marked Poikilocytosis Moderate Anisocytosis Slight Microcytosis Marked Sodium 135 L (137-145) mmol/L Potassium 5.2 H (3.5-5.1) mmol/L Chloride 102 (98-107) mmol/L Carbon Dioxide 22 (22-30) mmol/L Anion Gap 11 mmol/L BUN 21 H (9-20) mg/dL Creatinine 1.42 H (0.66-1.25) mg/dL Est GFR (CKD-EPI)AfAm 71 (>60 ml/min/1.73 sqM) Est GFR (CKD-EPI)NonAf 61 (>60 ml/min/1.73 sqM) Glucose 103 H (74-99) mg/dL Plasma Lactic Acid David 0.9 (0.7-2.0) mmol/L Calcium 10.0 (8.4-10.2) mg/dL Total Bilirubin 0.6 (0.2-1.3) mg/dL AST 28 (17-59) U/L ALT 15 (4-49) U/L Alkaline Phosphatase 75 (38-126) U/L C-Reactive Protein 2.6 H (<1.0) mg/dL Total Protein 8.6 H (6.3-8.2) g/dL Albumin 4.9 (3.5-5.0) g/dL Disposition <Colin Briggs - Last Filed: 05/14/24 13:32> Decision Time: 17:20 <Arnold Stinson - Last Filed: 05/14/24 17:20> Clinical Impression: Fever Disposition: ADMITTED IP TO THIS HOSP Condition: Fair Referrals: None,Stated [Primary Care Provider] - 1-2 days
--- NOTE | 2024-05-14 14:20 | XR ---
EXAMINATION TYPE: XR chest 2V DATE OF EXAM: 05/14/2024 COMPARISON: 04/29/2018 TECHNIQUE: PA and lateral views submitted. HISTORY: Fever FINDINGS: The lungs are clear and there is no pneumothorax, pleural effusion, or focal pneumonia. Heart size normal and no overt failure. Osseous structures demonstrate hypertrophic and degenerative changes of the spine. Hyperinflation suggests COPD. Chronic deformity of the left clavicle. IMPRESSION: 1. No acute process.
[2024-05-14 16:14] LABS: ALT 15 U/L (4-49); AST 28 U/L (17-59); African American GFR (CKD) 71 (>60 ml/min/1.73 sqM); Albumin 4.9 g/dL (3.5-5.0); Alkaline Phosphatase 75 U/L (38-126); Anion Gap 11 mmol/L; Blood Urea Nitrogen 21 mg/dL (9-20); C Reactive Protein 2.6 mg/dL (<1.0); Carbon Dioxide 22 mmol/L (22-30); Chloride 102 mmol/L (98-107); Glucose 103 mg/dL (74-99); Non-African American GFR(CKD) 61 (>60 ml/min/1.73 sqM); Potassium 5.2 mmol/L (3.5-5.1); Sodium 135 mmol/L (137-145); Total Bilirubin 0.6 mg/dL (0.2-1.3); Total Protein 8.6 g/dL (6.3-8.2)
[2024-05-14] MEDS ORDERED: VANCOMYCIN IV PER PHARMACY 1 EACH MISC MISCELLANE PRN (16:16)
[2024-05-14 16:37] LABS: Anisocytosis Slight; Basophils % (A) 0 %; Eosinophils # (A) 0.2 k/uL (0-0.7); Eosinophils % (A) 2 %; HCT 28.6 % (39.0-53.0); HGB 8.7 gm/dL (13.0-17.5); Hypochromasia Marked; Lymphocytes # (A) 1.8 k/uL (1.0-4.8); Lymphocytes % (A) 24 %; MCH 20.4 pg (25.0-35.0); MCHC 30.3 g/dL (31.0-37.0); Mean Platelet Volume 7.9; Microcytosis Marked; Monocytes # (A) 0.4 k/uL (0-1.0); Monocytes % (A) 5 %; Neutrophils % (A) 66 %; Platelet Count 253 k/uL (150-450); Poikilocytosis Moderate; RBC 4.26 m/uL (4.30-5.90); RDW 16.2 % (11.5-15.5); WBC 7.5 k/uL (3.8-10.6)
[2024-05-14 16:38] LABS: MCV 67.2 fL (80.0-100.0)
[2024-05-14] MEDS ORDERED: NALOXONE 0.4 MG/ML 1 ML VIAL IV PRN (17:18)
[2024-05-14] MEDS: SODIUM CHLORIDE 0.9% 1,000 ML IV SCH (17:20)
[2024-05-14] MEDS: PIPERACILLIN-TAZOBACTAM 3.375 GM in SODIUM CHLORIDE 0.9% 100 ML IVPB SCH (17:20)
--- NOTE | 2024-05-14 18:41 | P.HPIM ---
History of Present Illness H&P Date: 05/14/24 Chief Complaint: Sepsis Patient is a 39-year-old male with a history of IV drug use, anxiety, depression, seizure disorder presents to ER with a history of fever, chills and generalized weakness since 2 weeks. Patient endorses multiple raised tender draining nodules on his both lower legs and thigh area which started ever since he injected himself with heroin 2 weeks ago. Patient denies sharing the needle but unsure if you the same needle to inject himself at multiple sites. Patient went to urgent care about 2 weeks ago after the onset of symptoms and was prescribed doxycycline. Patient went back to urgent care with no improvement in his symptoms on doxycycline and was prescribed Keflex and Bactrim. According to patient, he has been compliant with his antibiotics but states that his symptoms have been constant and unresolving. He denies chest pain, shortness of breath, abdominal pain and no numbness or tingling in upper or lower extremities. Chest x-ray is unremarkable for any cardiopulmonary process. Laboratory evaluation in the ER shows WBC 7.5, hemoglobin 8.5, hematocrit 28.6, MCV 67.2, platelet count of 53, Sodium 135, potassium 5.2, chloride 102, bicarb 22, BUN 21, creatinine 1.42, glucose 103, C-reactive protein 2.6, lactate 0.9 Vitals: Tmax 100.8 F, pulse rate 113, respirate 20, blood pressure 96/55, O2 saturation 99% on room air Review of systems: Pertinent positives and negatives as discussed in HPI, a complete review of systems was performed and all other systems are negative. Social history: Tobacco: 1 pack/day x 20 years Alcohol: None Recreational drugs: IV heroin last used 2 weeks ago Travel: None Occupation: Works at a factory Family History: Noncontributory Physical examination: Vital signs reviewed General: non toxic, no distress, appears older than stated age, underweight Derm: 2 quarter sized raised indurated erythematous nodular lesions with central necrosis on medial left ankle, Head: atraumatic, normocephalic, symmetric Eyes: EOMI, no lid lag, anicteric sclera, pupils equal round reactive to light ENT: Nose and ears atraumatic Neck: No cervical lymphadenopathy, trachea midline, supple Mouth: no lip lesion, mucus membranes moist Cardiovascular: S1S2 reg, no murmur, positive dorsalis pedis pulse bilateral, no edema Lungs: CTA bilateral, no rhonchi, no rales, no accessory muscle use Abdominal: soft, nontender to palpation, no guarding Ext: muscle strength 5 out of 5 in all 4 extremities grossly, no gross muscle atrophy, no contractures, Neuro: CN II-XI grossly intact, no gross focal neuro deficits Psych: Alert, oriented, appropriate affect Assessment/Plan: 39-year-old male with a history of IV drug use, anxiety, depression and seizure disorder presents to the ER with a history of fever and chills since 2 weeks. Patient is admitted for sepsis secondary to soft tissue skin infection. #Sepsis secondary to soft tissue skin infection SIRS: 2 out of 4 Tmax 100.8 F, pulse rate 113, respirate 20, blood pressure 96/55 2 L normal saline bolus IV vancomycin and Unasyn IVPB every 6 hours, monitor for renal toxicity Obtain blood culture Monitor CBC Infectious disease consulted #Polysubstance abuse IV drug use Opiate use disorder Continue with Suboxone 8-2 mg 1 tab p.o. twice daily and 0.5 tab sublingual daily -Monitor for opiate withdrawal #Acute kidney injury likely prerenal azotemia secondary to sepsis BUN 21, creatinine 1.42 Continue with IV normal saline Monitor BMP # Microcytic anemia Hemoglobin 8.7, MCV 67 Consider transfusion if hemoglobin less than 7 Monitor CBC Order iron studies DVT prophylaxis: SCDs, low Darren score CODE STATUS: Full code Discussed with: Patient Anticipated discharge place: Pending clinical course The patient is admitted with an anticipated greater than 2 midnight stay as inpatient status for evaluation of sepsis. A total of 55 minutes was spent on the care of this complex patient more than 50% of the time was spent in counseling and care coordination. I have seen and evaluated the patient today. Discussed with the resident and agree with the residents finding and plan as documented in the resident's note. Changes highlighted in blue font. Past Medical History Past Medical History: Fibromyalgia, Pneumonia, Seizure Disorder Additional Past Medical History / Comment(s): UMBILICAL HERNIA, SEIZURE DISORDER, STATES STOPPED TAKING DILANTIN, MIGRAINES, DEGENERATIVE DISC DISEASE, BULGING DISC History of Any Multi-Drug Resistant Organisms: None Reported Past Surgical History: No Surgical Hx Reported Additional Past Surgical History / Comment(s): VASECTOMY, umbilical hernia repair Past Anesthesia/Blood Transfusion Reactions: No Reported Reaction Past Psychological History: Anxiety, Depression Smoking Status: Current every day smoker Past Alcohol Use History: None Reported Past Drug Use History: None Reported - Past Family History Father Family Medical History: Unable to Obtain Mother Family Medical History: Unable to Obtain Medications and Allergies Home Medications Medication Instructions Recorded Confirmed Type Buprenorphine-Nalox 8-2 mg Tab 0.5 tab SUBLINGUAL DAILY@1200 03/31/24 05/14/24 History [Suboxone 8-2 mg Tab] Buprenorphine-Nalox 8-2 mg Tab 1 tab PO BID 03/31/24 05/14/24 History [Suboxone 8-2 mg Tab] Galcanezumab-Gnlm [Emgality Pen] 120 mg SQ QMONTHLY 03/31/24 05/14/24 History Latanoprost [Latanoprost 0.005%] 1 drop BOTH EYES HS 03/31/24 05/14/24 History Pregabalin [Lyrica] 150 mg PO BID 03/31/24 05/14/24 History Cephalexin [Keflex] 500 mg PO QID 05/14/24 05/14/24 History Sulfamethox-Tmp 800-160Mg [Bactrim 1 tab PO BID 05/14/24 05/14/24 History DS 800-160 mg] Allergies Allergy/AdvReac Type Severity Reaction Status Date / Time No Known Allergies Allergy Verified 05/14/24 15:29 Physical Exam Vitals: Vital Signs Temp Pulse Resp BP Pulse Ox 05/14/24 18:28 98.2 F 86 17 103/59 96 05/14/24 17:16 98.0 F 69 18 106/69 96 05/14/24 13:27 99.9 F H 93 16 102/62 96 05/14/24 12:35 100.8 F H 113 H 20 96/55 99 Intake and Output 05/14/24 05/14/24 05/14/24 06:59 14:59 22:59 Other: Weight 61.235 kg Results CBC & Chem 7: 05/14/24 13:21 05/14/24 13:21 Labs: Abnormal Lab Results - Last 24 Hours (Table) 05/14/24 05/14/24 Range/Units 13:21 13:21 RBC 4.26 L (4.30-5.90) m/uL Hgb 8.7 L (13.0-17.5) gm/dL Hct 28.6 L (39.0-53.0) % MCV 67.2 L D (80.0-100.0) fL MCH 20.4 L (25.0-35.0) pg MCHC 30.3 L (31.0-37.0) g/dL RDW 16.2 H (11.5-15.5) % Sodium 135 L (137-145) mmol/L Potassium 5.2 H (3.5-5.1) mmol/L BUN 21 H (9-20) mg/dL Creatinine 1.42 H (0.66-1.25) mg/dL Glucose 103 H (74-99) mg/dL C-Reactive Protein 2.6 H (<1.0) mg/dL Total Protein 8.6 H (6.3-8.2) g/dL
[2024-05-14] MEDS: VANCOMYCIN 1,250 MG in SODIUM CHLORIDE 0.9% 250 ML IVPB STA (19:01)
[2024-05-14 19:22] VITALS: RESP 16
[2024-05-14 20:37] LABS: Erythrocyte Sedimentation Rate 73 mm/Hr (0-15)
[2024-05-14] MEDS: PREGABALIN 75 MG CAP PO STA (20:43)
[2024-05-14] MEDS: NICOTINE 14MG/24HR PATCH TRANSDERM SCH (20:43)
[2024-05-14] MEDS: AMPICILLIN-SULBACTAM 3 GM in SODIUM CHLORIDE 0.9% 100 ML IVPB SCH (22:04)
[2024-05-14] MEDS: SODIUM CHLORIDE 0.9% 2,000 ML IV ONE (22:05)
[2024-05-14] MEDS: NON FORMULARY DRUG (Buprenorphine-Nalox 8-2 Mg Tab 1 EACH Tablet) PO SCH (22:06)
[2024-05-15] MEDS: AMPICILLIN-SULBACTAM 3 GM in SODIUM CHLORIDE 0.9% 100 ML IVPB SCH (03:28)
[2024-05-15 04:04] LABS: African American GFR (CKD) >90 (>60 ml/min/1.73 sqM); Non-African American GFR(CKD) >90 (>60 ml/min/1.73 sqM)
[2024-05-15] MEDS ORDERED: IPRATROPIUM-ALBUTEROL 3 ML NEB INHALATION PRN (08:21)
[2024-05-15 09:03] LABS: Anisocytosis Slight; HGB 7.7 gm/dL (13.0-17.5); Hypochromasia Marked; MCH 20.8 pg (25.0-35.0); MCHC 30.8 g/dL (31.0-37.0); MCV 67.5 fL (80.0-100.0); Mean Platelet Volume 8.8; Microcytosis Marked; Platelet Count 247 k/uL (150-450); Poikilocytosis Moderate; RDW 16.5 % (11.5-15.5); WBC 5.2 k/uL (3.8-10.6)
[2024-05-15 09:13] LABS: African American GFR (CKD) >90 (>60 ml/min/1.73 sqM); Anion Gap 7 mmol/L; Blood Urea Nitrogen 20 mg/dL (9-20); Calcium 8.5 mg/dL (8.4-10.2); Carbon Dioxide 20 mmol/L (22-30); Chloride 112 mmol/L (98-107); Glucose 109 mg/dL (74-99); Non-African American GFR(CKD) 84 (>60 ml/min/1.73 sqM); Potassium 5.1 mmol/L (3.5-5.1); Sodium 139 mmol/L (137-145)
[2024-05-15 09:27] LABS: Eosinophils # (M) 0.16 k/uL (0-0.7); Lymphocytes # (M) 2.39 k/uL (1.0-4.8); Metamyelocytes # (M) 0.05 k/uL (0); Metamyelocytes % 1 %; Monocytes # (M) 0.83 k/uL (0-1.0); Neutrophils # (M) 1.77 k/uL (1.3-7.7); Neutrophils % (M) 34 %; Nucleated Red Blood Cells 0 /100 WBC (0-0); Ovalocytes Present; Target Cells Present; Total Cells Counted 100
[2024-05-15] MEDS: VANCOMYCIN 1,250 MG in SODIUM CHLORIDE 0.9% 250 ML IVPB SCH (09:29)
[2024-05-15] MEDS: PREGABALIN 75 MG CAP PO SCH (10:28)
[2024-05-15] MEDS: NON FORMULARY DRUG (Buprenorphine-Nalox 8-2 Mg Tab 1 EACH Tablet) SUBLINGUAL SCH (10:29)
[2024-05-15 11:00] LABS: % Iron Saturation 3.74 (15.00-50.00)
--- NOTE | 2024-05-15 16:08 | P.PN ---
Subjective Progress Note Date: 05/15/24 Subjective: Patient seen and examined at the bedside. No acute events overnight. Patient denies fever, chills, nausea or vomiting. Patient denies any active bleeding, denies red blood per rectum or dark tarry stools. All Systems reviewed and pertinent positives and negatives noted in HPI, all other symptoms are negative Objective: Vital signs reviewed. Physical examination: Vital signs reviewed General: non toxic, no distress, appears older than stated age, underweight Derm: 2 quarter sized raised indurated erythematous nodular lesions with central necrosis on medial left ankle, Head: atraumatic, normocephalic, symmetric Eyes: EOMI, no lid lag, anicteric sclera, pupils equal round reactive to light ENT: Nose and ears atraumatic Neck: No cervical lymphadenopathy, trachea midline, supple Mouth: no lip lesion, mucus membranes moist Cardiovascular: S1S2 reg, no murmur, positive dorsalis pedis pulse bilateral, no edema Lungs: Bilateral expiratory wheezing with rhonchi. No rales, no accessory muscle use Abdominal: soft, nontender to palpation, no guarding Ext: muscle strength 5 out of 5 in all 4 extremities grossly, no gross muscle atrophy, no contractures, Neuro: CN II-XI grossly intact, no gross focal neuro deficits Psych: Alert, oriented, appropriate affect Data reviewed today: Labs: WBC 5.2, hemoglobin 7.7, hematocrit 25.0, MCV 67.5, platelet count 247, sodium 139, potassium 5.1, chloride 112, bicarb 20, BUN 20, creatinine 1.09, glucose 109 Serum iron 14, TIBC 374, percent saturation 3.74, transferrin 267, ferritin 22 Images: No new imaging Assessment and Plan: 39-year-old male with a history of IV drug use, anxiety, depression and seizure disorder presents to the ER with a history of fever and chills since 2 weeks. Patient is admitted for sepsis secondary to soft tissue skin infection. #Sepsis secondary to soft tissue skin infection SIRS: 2 out of 4 Tmax 100.8 F, pulse rate 113, respirate 20, blood pressure 96/55 Continue with IV normal saline at 20 cc/h IV vancomycin and Unasyn IVPB every 6 hours, monitor for renal toxicity Obtain blood culture; report pending Monitor CBC Infectious disease consulted #Polysubstance abuse #IV drug use #Opiate use disorder Continue with Suboxone 8-2 mg 1 tab p.o. twice daily and 0.5 tab sublingual daily Monitor for opiate withdrawal Lyrica 150 twice daily #Acute kidney injury likely prerenal azotemia secondary to sepsis, resolved #Iron deficiency anemia Serum iron 14, TIBC 374, percent saturation 3.74, transferrin 267, ferritin 22 Hemoglobin level dropped from 8.7-->7.7 Consider transfusion if hemoglobin less than 7 Monitor CBC Patient denies any active bleeding -Avoid IV iron, may start oral iron at the time of discharge. Needs outpatient workup for iron deficiency anemia. #Non-anion gap hyperchloremic metabolic acidosis likely secondary to IV normal saline volume resuscitation Continue monitor BMP #Suspected COPD DuoNebs RT 4 times daily as needed F: IV normal saline at 20 cc/h E: Replete as needed N: Regular diet A: Ambulatory without assist DVT ppx: Ambulatory Code Status: Full code Anticipated discharge place: Pending clinical discharge Anticipated discharge date: Pending clinical discharge I have seen and evaluated the patient today. Discussed with the resident and agree with the residents finding and plan as documented in the resident's note. Changes highlighted in blue font. Objective - Vital Signs Vital signs: Vital Signs Temp 98.6 F 05/15/24 01:21 Pulse 83 05/15/24 01:21 Resp 16 05/15/24 01:21 BP 94/56 05/15/24 01:21 Pulse Ox 95 05/15/24 01:21 FiO2 Intake & Output 05/14/24 05/15/24 05/15/24 18:59 06:59 18:59 Intake Total 120 Balance 120 Weight 61.235 kg 61.235 kg Intake: Oral 120 Other: Voiding Method Toilet # Voids 3 - Labs CBC & Chem 7: 05/15/24 08:16 05/15/24 08:16 Labs: Abnormal Lab Results - Last 24 Hours (Table) 05/14/24 05/14/24 Range/Units 13:21 13:21 RBC 4.26 L (4.30-5.90) m/uL Hgb 8.7 L (13.0-17.5) gm/dL Hct 28.6 L (39.0-53.0) % MCV 67.2 L D (80.0-100.0) fL MCH 20.4 L (25.0-35.0) pg MCHC 30.3 L (31.0-37.0) g/dL RDW 16.2 H (11.5-15.5) % ESR 73 H (0-15) mm/Hr Sodium 135 L (137-145) mmol/L Potassium 5.2 H (3.5-5.1) mmol/L BUN 21 H (9-20) mg/dL Creatinine 1.42 H (0.66-1.25) mg/dL Glucose 103 H (74-99) mg/dL C-Reactive Protein 2.6 H (<1.0) mg/dL Total Protein 8.6 H (6.3-8.2) g/dL
[2024-05-15] MEDS: ACETAMINOPHEN TAB 325 MG TAB PO PRN (21:28)
--- NOTE | 2024-05-16 07:10 | P.CONS ---
History of Present Illness - Reason for Consult Consult date: 05/15/24 Fever, IV drug user Requesting physician: Arnold Stinson - Chief Complaint Left leg wound draining pain x days - History of Present Illness Patient is a 39-year-old male with a past medical history significant for IV drug use seizure disorder pneumonia fibromyalgia last IV drug use to the left lower extremity presenting to the hospital for evaluation of left lower extremity wounds x 2 and drainage from it that he has been dealing for more than a week or 2 apparently the patient has been treated in the outpatient setting with doxycycline that was switched to Keflex and Bactrim as he was not tolerating the doxycycline patient now complaining of increasing pain swelling redness and drainage from the area patient describes the pain to be sharp moderate intense without any radiation has been complaining of some chills as well as fever on presentation to the hospital he did have a temperature of 100.8 degrees for night patient was nontachycardic hypotensive or hypoxic he did have white count of 7.5 creatinine is 1.42 liver enzymes are normal blood cultures obtained which are currently pending he was started on Unasyn and vancomycin infectious disease was consulted for further management of antibiotic therapy Review of Systems Positive point and negatives has been mentioned in the HPI, complete review of systems was performed and all other systems are negative Past Medical History Past Medical History: Fibromyalgia, Pneumonia, Seizure Disorder Additional Past Medical History / Comment(s): UMBILICAL HERNIA, SEIZURE DISORDER, STATES STOPPED TAKING DILANTIN, MIGRAINES, DEGENERATIVE DISC DISEASE, BULGING DISC, heroin and fentanyl abuse clean since 05/01/24 History of Any Multi-Drug Resistant Organisms: None Reported Past Surgical History: No Surgical Hx Reported Additional Past Surgical History / Comment(s): VASECTOMY, umbilical hernia repair Past Anesthesia/Blood Transfusion Reactions: No Reported Reaction Past Psychological History: Anxiety, Depression Smoking Status: Current every day smoker Past Alcohol Use History: None Reported Additional Past Alcohol Use History / Comment(s): STARTED SMOKING AT AT AGE 8 SMOKES 1PPD, SMOKING CESSATION BOOKLET GIVEN TO PT,. Past Drug Use History: Heroin Additional Drug Use History / Comment(s): Fentanyl - Past Family History Father Family Medical History: Unable to Obtain Mother Family Medical History: Unable to Obtain Medications and Allergies Home Medications Medication Instructions Recorded Confirmed Type Buprenorphine-Nalox 8-2 mg Tab 0.5 tab SUBLINGUAL DAILY@1200 03/31/24 05/14/24 History [Suboxone 8-2 mg Tab] Buprenorphine-Nalox 8-2 mg Tab 1 tab PO BID 03/31/24 05/14/24 History [Suboxone 8-2 mg Tab] Galcanezumab-Gnlm [Emgality Pen] 120 mg SQ QMONTHLY 03/31/24 05/14/24 History Latanoprost [Latanoprost 0.005%] 1 drop BOTH EYES HS 03/31/24 05/14/24 History Pregabalin [Lyrica] 150 mg PO BID 03/31/24 05/14/24 History Cephalexin [Keflex] 500 mg PO QID 05/14/24 05/14/24 History Sulfamethox-Tmp 800-160Mg [Bactrim 1 tab PO BID 05/14/24 05/14/24 History DS 800-160 mg] Allergies Allergy/AdvReac Type Severity Reaction Status Date / Time No Known Allergies Allergy Verified 05/14/24 15:29 Physical Exam Vitals: Vital Signs Temp Pulse Pulse Resp BP BP Pulse Ox 05/15/24 07:16 98.9 F 73 16 95/65 98 05/15/24 01:21 98.6 F 83 16 94/56 95 05/14/24 20:00 16 05/14/24 19:21 98.8 F 64 16 93/55 97 05/14/24 18:28 98.2 F 86 17 103/59 96 05/14/24 17:16 98.0 F 69 18 106/69 96 05/14/24 13:27 99.9 F H 93 16 102/62 96 05/14/24 12:35 100.8 F H 113 H 20 96/55 99 Intake and Output 05/14/24 05/15/24 05/15/24 22:59 06:59 14:59 Intake Total 120 Balance 120 Intake: Oral 120 Other: Voiding Method Toilet # Voids 3 Weight 61.235 kg GENERAL DESCRIPTION: Middle-aged male lying in bed, no distress. No tachypnea or accessory muscle of respiration use. HEENT: Shows Pallor , no scleral icterus. Oral mucous membrane is dry. No pharyngeal erythema or thrush NECK: Trachea central, no thyromegaly. LUNGS: Unlabored breathing. Clear to auscultation anteriorly. No wheeze or crackle. HEART: S1, S2, regular rate and rhythm. No loud murmur ABDOMEN: Soft, no tenderness , guarding or rigidity, no organomegaly EXTREMITIES: Left lower extremity did have 2 scabbed over area no foul-smelling drainage SKIN: No rash, no masses palpable. NEUROLOGICAL: The patient is awake, alert, oriented x3, mood and affect normal. Results CBC & Chem 7: 05/15/24 08:16 05/15/24 08:16 Labs: Abnormal Lab Results - Last 24 Hours (Table) 05/14/24 05/14/24 05/15/24 Range/Units 13:21 13:21 03:14 RBC 4.26 L (4.30-5.90) m/uL Hgb 8.7 L (13.0-17.5) gm/dL Hct 28.6 L (39.0-53.0) % MCV 67.2 L D (80.0-100.0) fL MCH 20.4 L (25.0-35.0) pg MCHC 30.3 L (31.0-37.0) g/dL RDW 16.2 H (11.5-15.5) % Metamyelocytes # (Man) (0) k/uL ESR 73 H (0-15) mm/Hr Sodium 135 L (137-145) mmol/L Potassium 5.2 H (3.5-5.1) mmol/L Chloride (98-107) mmol/L Carbon Dioxide (22-30) mmol/L BUN 21 H (9-20) mg/dL Creatinine 1.42 H (0.66-1.25) mg/dL Glucose 103 H (74-99) mg/dL Iron 14 L (65-175) UG/DL % Saturation 3.74 L (15.00-50.00) C-Reactive Protein 2.6 H (<1.0) mg/dL Total Protein 8.6 H (6.3-8.2) g/dL 05/15/24 05/15/24 Range/Units 08:16 08:16 RBC 3.70 L (4.30-5.90) m/uL Hgb 7.7 L (13.0-17.5) gm/dL Hct 25.0 L (39.0-53.0) % MCV 67.5 L (80.0-100.0) fL MCH 20.8 L (25.0-35.0) pg MCHC 30.8 L (31.0-37.0) g/dL RDW 16.5 H (11.5-15.5) % Metamyelocytes # (Man) 0.05 H (0) k/uL ESR (0-15) mm/Hr Sodium (137-145) mmol/L Potassium (3.5-5.1) mmol/L Chloride 112 H (98-107) mmol/L Carbon Dioxide 20 L (22-30) mmol/L BUN (9-20) mg/dL Creatinine (0.66-1.25) mg/dL Glucose 109 H (74-99) mg/dL Iron (65-175) UG/DL % Saturation (15.00-50.00) C-Reactive Protein (<1.0) mg/dL Total Protein (6.3-8.2) g/dL Assessment and Plan (1) Left leg cellulitis Current Visit: Yes Status: Acute Code(s): L03.116 - CELLULITIS OF LEFT LOWER LIMB SNOMED Code(s): 21736980070651157 (2) Fever Current Visit: Yes Status: Acute Code(s): R50.9 - FEVER, UNSPECIFIED SNOMED Code(s): 437741280 Plan: 1patient presented to hospital with left lower extremity wounds x 2 which are currently scabbed patient mention previously has been draining pus from the area failing outpatient oral antibiotic therapy with a history of drug use will need to cover for the MRSA to be the likely pathogen 2-nursing staff has been advised if the area started to drain to obtain culture 3-vancomycin pharmacy to dose target trough of 15 while watching kidney function and Vanco trough closely while waiting for the blood culture to finalize We will follow on clinical condition and cultures to further adjust medication if needed Thank you for this consultation we will follow the patient along with you Dictation was produced using [employer] software. please excuse any grammatical, word or spelling errors. Time with Patient: Greater than 30
[2024-05-16 08:44] VITALS: BP 108/67; PULSE 74; TEMP 98.2
[2024-05-16 09:38] LABS: Anisocytosis Slight; Basophils % (A) 0 %; Eosinophils # (A) 0.2 k/uL (0-0.7); Eosinophils % (A) 4 %; HCT 28.6 % (39.0-53.0); HGB 8.2 gm/dL (13.0-17.5); Hypochromasia Marked; Lymphocytes # (A) 1.8 k/uL (1.0-4.8); Lymphocytes % (A) 32 %; MCH 20.4 pg (25.0-35.0); MCHC 28.5 g/dL (31.0-37.0); MCV 71.6 fL (80.0-100.0); Mean Platelet Volume 7.8; Microcytosis Moderate; Monocytes # (A) 0.2 k/uL (0-1.0); Monocytes % (A) 3 %; Neutrophils # (A) 3.2 k/uL (1.3-7.7); Neutrophils % (A) 58 %; Platelet Count 254 k/uL (150-450); Poikilocytosis Moderate; RBC 3.99 m/uL (4.30-5.90); RDW 16.8 % (11.5-15.5); WBC 5.5 k/uL (3.8-10.6)
[2024-05-16 09:54] LABS: African American GFR (CKD) >90 (>60 ml/min/1.73 sqM); Anion Gap 7 mmol/L; Blood Urea Nitrogen 12 mg/dL (9-20); Calcium 9.1 mg/dL (8.4-10.2); Carbon Dioxide 21 mmol/L (22-30); Chloride 111 mmol/L (98-107); Glucose 94 mg/dL (74-99); Non-African American GFR(CKD) >90 (>60 ml/min/1.73 sqM); Sodium 139 mmol/L (137-145)
--- NOTE | 2024-05-16 13:23 | P.DS ---
Providers Date of admission: 05/14/24 17:19 Expected date of discharge: 05/16/24 Attending physician: Armando Mckeon MD Consults: 05/14/24 16:16 Consult Physician Routine Consulting Provider: Tenzin Frazier Consult Reason/Comments: fever, iv drug user Do you want consulting provider notified?: Yes Primary care physician: Stated None Hospital Course: Discharge Diagnosis: 1. Sepsis secondary to skin and soft tissue infections 2. Polysubstance abuse 3. IV drug use 4. Opioid use disorder 5. Acute kidney injury likely prerenal secondary to sepsis 6. Iron deficiency anemia 7. Non anion gap hyperchloremic metabolic acidosis 8. Suspected COPD Hospital Course: 39-year-old male with a history of IV drug use, anxiety, depression, seizure disorder presented to the ER on 05/14/2024 with a history of fever, chills and generalized weakness since 2 weeks. Patient endorsed multiple raised, tender, draining nodules (which were scabbed over at the time of his presentation at the ER) on his both lower legs and left thigh area which started ever since he injected himself with heroin 2 weeks ago. Patient was admitted for sepsis sec ondary to skin and soft tissue infection after failed outpatient therapy. Patient was started on IV vancomycin and Unasyn. Blood cultures were ordered. ID also consulted. Blood culture report is unremarkable for any growth. In the interim patient developed DARRYL secondary to sepsis. Patient improved during the course of this admission. Sepsis and DARRYL resolved. Patient is advised to follow-up with PCP for further workup on iron deficiency anemia, suspected COPD and opioid use disorder. Patient to be discharged home on self-care. Patient was also provided with instructions on sepsis and opioid safety. Patient is advised to continue with his home medications as directed. Patient is to continue with Bactrim DS 800-160 mg 1 tab p.o. twice daily for 10 days. Vital signs reviewed. Gen: in no apparent distress, resting comfortably in bed Eyes: PERRL, no scleral injection or icterus HENT: normocephalic, atraumatic, good hearing acuity, moist mucous membranes Neck: full range of motion Resp: CTAB, no rales, rhonchi, or wheezes CVS: normal S1 and S2, no murmurs, rubs or gallops, no edema GI: soft, NTTP, ND, no hepatosplenomegaly : no suprapubic tenderness, no CVAT, arreola catheter [is/not] present MSK: no clubbing, no cyanosis, no noted contractures of extremities Derm: 2 quarter sized raised indurated erythematous nodular lesions with central necrosis on medial left ankle, Neuro: moving all extremities without signs of weakness, CN II-XII intact Psych: cooperative, euthymic mood, insight and judgment intact A total of 33 minutes of time were spent preparing this complex discharge summary. Patient was discharged on 05/16/2024 at 1220. I have seen and evaluated the patient today. Discussed with the resident and agree with the residents finding and plan as documented in the resident's note. Changes highlighted in blue font. Patient Condition at Discharge: Stable Plan - Discharge Summary Discharge Rx Participant: No New Discharge Prescriptions: Continue Pregabalin [Lyrica] 150 mg PO BID Galcanezumab-Gnlm [Emgality Pen] 120 mg SQ QMONTHLY Buprenorphine-Nalox 8-2 mg Tab [Suboxone 8-2 mg Tab] 1 tab PO BID Latanoprost [Latanoprost 0.005%] 1 drop BOTH EYES HS Buprenorphine-Nalox 8-2 mg Tab [Suboxone 8-2 mg Tab] 0.5 tab SUBLINGUAL DAILY@1200 Sulfamethox-Tmp 800-160Mg [Bactrim DS 800-160 mg] 1 tab PO BID #20 tab Discontinued Cephalexin [Keflex] 500 mg PO QID Discharge Medication List Buprenorphine-Nalox 8-2 mg Tab [Suboxone 8-2 mg Tab] 0.5 tab SUBLINGUAL DAILY@1200 03/31/24 [History] Buprenorphine-Nalox 8-2 mg Tab [Suboxone 8-2 mg Tab] 1 tab PO BID 03/31/24 [History] Galcanezumab-Gnlm [Emgality Pen] 120 mg SQ QMONTHLY 03/31/24 [History] Latanoprost [Latanoprost 0.005%] 1 drop BOTH EYES HS 03/31/24 [History] Pregabalin [Lyrica] 150 mg PO BID 03/31/24 [History] Sulfamethox-Tmp 800-160Mg [Bactrim DS 800-160 mg] 1 tab PO BID #20 tab 05/16/24 [Rx] Follow up Appointment(s)/Referral(s): Sb Mckeon MD [REFERRING] - 3 Days (The office will call you to set up a follow up appointment. If you do not hear from them in a few days, please call Monday05/20/24 to set up an appointment. ) Patient Instructions/Handouts: Sepsis (DC), Opioid Safety (DC) Activity/Diet/Wound Care/Special Instructions: Please see PCP. [facility] Address: [address] [place] [address], [place] [address] Discharge Disposition: HOME SELF-CARE
--- NOTE | 2024-05-16 14:54 | P.PN ---
Subjective Progress Note Date: 05/16/24 Principal diagnosis: Reason for follow-up is left lower extremity cellulitis Patient is a 39-year-old male with a past medical history significant for IV drug use seizure disorder pneumonia fibromyalgia last IV drug use to the left lower extremity presenting to the hospital for evaluation of left lower extremity wounds x 2 and did have a fever. On today's evaluation that is 05/16/2024, Patient is afebrile this morning patient denies having any chest pain shortness of breath or cough, the patient is breathing comfortably and currently on room air, patient denies any abdominal pain no diarrhea no nausea no vomiting, the patient left leg discomfort has decreased mention there was some drainage yesterday the same slowdown patient overall feeling better wants to go home. Patient white count is 5.5, creatinine 0.73 blood cultures currently pending Objective - Vital Signs Vital signs: Vital Signs Temp 98.2 F 05/16/24 08:06 Pulse 74 05/16/24 08:06 Resp 16 05/16/24 08:06 BP 108/67 05/16/24 08:06 Pulse Ox 100 05/16/24 08:06 FiO2 Intake & Output 05/15/24 05/16/24 05/16/24 18:59 06:59 18:59 Intake Total 450 590 Balance 450 590 Intake: Intake, IV Titration 450 590 Amount Ampicillin-Sulbactam 3 gm 200 100 In Sodium Chloride 0.9% 100 ml @ 200 mls/hr IVPB Q6HR@0400,1000,1600,2200 [facility] Rx#:[id number] Sodium Chloride 0.9% 1, 240 000 ml @ 20 mls/hr IV . Q24H [facility] Rx#:[id number] Vancomycin 1,250 mg In 250 250 Sodium Chloride 0.9% 250 ml @ 125 mls/hr IVPB Q12HR [facility] Rx#:[id number] Other: Voiding Method Toilet - Exam GENERAL DESCRIPTION: Middle-age male lying in bed in no distress RESPIRATORY SYSTEM: Unlabored breathing , decreased breath sounds at bases HEART: S1 S2 regular rate and rhythm , ABDOMEN: Soft , no tenderness EXTREMITIES: Left lower leg with 2 small wounds dry crusted no drainage - Labs CBC & Chem 7: 05/16/24 08:52 05/16/24 08:52 Labs: Abnormal Lab Results - Last 24 Hours (Table) 05/16/24 05/16/24 Range/Units 08:52 08:52 RBC 3.99 L (4.30-5.90) m/uL Hgb 8.2 L (13.0-17.5) gm/dL Hct 28.6 L (39.0-53.0) % MCV 71.6 L (80.0-100.0) fL MCH 20.4 L (25.0-35.0) pg MCHC 28.5 L (31.0-37.0) g/dL RDW 16.8 H (11.5-15.5) % Chloride 111 H (98-107) mmol/L Carbon Dioxide 21 L (22-30) mmol/L Microbiology - Last 24 Hours (Table) 05/14/24 13:21 Blood Culture - Preliminary Blood Assessment and Plan (1) Left leg cellulitis Status: Acute Code(s): L03.116 - CELLULITIS OF LEFT LOWER LIMB SNOMED Code(s): 29118209754758696 (2) Fever Status: Acute Code(s): R50.9 - FEVER, UNSPECIFIED SNOMED Code(s): 459427946 Plan: 1patient presented to hospital with left lower extremity wounds x 2 which are currently scabbed patient mention previously has been draining pus from the area failing outpatient oral antibiotic therapy with a history of drug use will need to cover for the MRSA to be the likely pathogen 2-patient did have resolution of his fever has been insisting on going home he may consider Bactrim DS for 7 days discussed with admitting physician however his blood culture need to be monitored closely till finalized Dictation was produced using [employer] dictation software. please excuse any grammatical, word or spelling errors. Time with Patient: Less than 30
[2024-05-16] MEDS ORDERED: VANCOMYCIN TROUGH DUE 1 EACH MISC MISCELLANE ONE (20:00)
--- NOTE | 2024-06-07 09:00 | CDI ---
Documentation Clarification Form Date: 06/07/2024 08:48:33 AM From: Yasmeen Hdez RN, CCDS Phone: [phone] Admit Date: 05/14/2024 05:19:00 PM Patient Name: Juan Barros Visit Number: [id number] Discharge Date: 05/16/2024 01:40:00 PM ATTENTION: The Clinical Documentation Specialists (CDI) and [facility] Coding Staff appreciate your assistance in clarifying documentation. Please respond to the clarification below the line at the bottom and electronically sign. The CDI & [facility] Coding staff will review the response and follow-up if needed. Please note: Queries are made part of the Legal Health Record. If you have any questions, please contact the author of this message via ITS. Doctor Armando Mckeon Sepsis is documented in the H&P and discharge summary which may lack sufficient clinical evidence/support in the medical record. Additional clarification is requested. History/Risk Factors: IV drug use, anxiety, depression and seizure disorder. Patient injected himself with heroin 2 weeks ago. Endorsed multiple raised tender draining nodules on both lower legs and thighs after injections. Presents with fever, chills and weakness for 2 weeks. Admitted with sepsis. Clinical Indicators: H&P: "Sepsis secondary to soft tissue skin infection. SIRS 2 out of 4." 05/14 VS: Tmax 100.8 F, pulse rate 113, respiratory rate 20, blood pressure 96/55 05/15 VS: Tmax 98.8, pulse rate 83, respiratory rate 29, blood pressure 126/76 05/14-05/16 WBC: 7.5-5.2-5.5 05/14 Blood cultures: no growth Treatment: IV Unasyn 3gm x1 Q6H 05/14-05/16; IV Zosyn 3.375gm x1 on 05/14; IV Vancomycin 1250mg x1 on 05/14; IV Vancomycin 1250mg Q12H 05/15-05/16; 1L 0.9 NS IV bolus x1 on 05/14 ID consult: "on presentation to the hospital he did have a temperature of 100.8. Patient was non tachycardic, hypotensive or hypoxic. He did have white count of 7.5. Left leg cellulitis. Fever." After work up and study, please clarify which diagnosis is most appropriate? [ ] Sepsis ruled out [ ] Sepsis treated prophylactically [ x ] Sepsis is a valid diagnosis as evidence by the following: (Please add rationale): fever and tachycardia [ ] Other, please specify [ ] Unable to determine MTDD
== END 2024-05-16 13:40 | disposition home or self-care (01) | DRG 872 ==
LOC: EC 12:19 → 5NMEDONC 17:19
PROVIDERS: ADMIT Student in an Organized Health Care Education/Training Program; ATTEND Student in an Organized Health Care Education/Training Program
DX: A41.02 Sepsis due to Methicillin resistant Staphylococcus aureus (principal); N17.9 Acute kidney failure, unspecified; E87.29 Other acidosis; F11.20 Opioid dependence, uncomplicated; Z68.1 Body mass index [BMI] 19.9 or less, adult; L03.116 Cellulitis of left lower limb; E87.8 Other disorders of electrolyte and fluid balance, not elsewhere classified; F19.10 Other psychoactive substance abuse, uncomplicated; J44.9 Chronic obstructive pulmonary disease, unspecified; G40.909 Epilepsy, unspecified, not intractable, without status epilepticus; D50.9 Iron deficiency anemia, unspecified; R63.6 Underweight; F17.210 Nicotine dependence, cigarettes, uncomplicated; M79.7 Fibromyalgia; Z79.899 Other long term (current) drug therapy
CPT/HCPCS: 36415; 71046; 80048; 80053; 82565; 82728; 83540; 83550; 83605; 84466; 85025; 85652; 86140; 87040; 96365; 99285

== ENCOUNTER → 2024-12-28 | Outpatient (CLI) | payer MEDICARE, BC ==
[2024-12-29 06:36] LABS: HCT 37.6 % (39.6-50.0); HGB 10.8 g/dL (13.0-17.0); MCH 20.7 pg (27.0-32.0); MCHC 28.7 g/dL (32.0-37.0); MCV 72.2 FL (80.0-97.0); Microcytosis (M) 2+ (None Seen); NRBC Per 100 WBC 0 X 10*3/uL (0.00-0.01); Platelet Count 176 X 10*3/uL (140-440); RBC 5.21 X 10*6/uL (4.40-5.60); RDW 19.6 % (11.5-14.5); WBC 5.66 X 10*3/uL (4.50-10.00)
[2024-12-29 07:40] LABS: ALT 30 U/L (10-49); AST 27 U/L (14-35); Albumin 4.4 g/dL (3.8-4.9); Albumin/Globulin Ratio 1.38 Ratio (1.60-3.17); Alkaline Phosphatase 75 U/L (41-126); Blood Urea Nitrogen 19.6 mg/dL (9.0-27.0); Calcium 9.2 mg/dL (8.7-10.3); Carbon Dioxide 18.9 mmol/L (21.6-31.8); Chloride 104 mmol/L (96-109); Chol/HDL Ratio 3.63 Ratio; Globulin 3.2 g/dL (1.6-3.3); Glucose 80 mg/dL (70-110); LDL Cholesterol,Calculated 81.6 mg/dL (0.0-131.0); Potassium 4.2 mmol/L (3.5-5.5); Sodium 137 mmol/L (135-145); Total Bilirubin <0.2 mg/dL (0.3-1.2); Total Protein 7.6 g/dL (6.2-8.2)
[2024-12-29 08:06] LABS: Hepatitis A Antibody IgM Nonreactive (Nonreactive)
[2024-12-29 08:07] LABS: Hepatitis B Core IgM Nonreactive (Nonreactive); Hepatitis B Surface Antigen Nonreactive (Nonreactive); Hepatitis C IgG Antibody Reactive (Nonreactive)
== END | disposition home or self-care (01) ==
LOC: LABWHC1 11:54
PROVIDERS: ATTEND Family Medicine Addiction Medicine
DX: F11.10 Opioid abuse, uncomplicated (principal); Z53.9 Procedure and treatment not carried out, unspecified reason
CPT/HCPCS: 36415; 80053; 80061; 80074; 85027

== ENCOUNTER → 2025-02-14 | Outpatient (CLI) | payer MEDICARE, OTHER ==
[2025-02-14 17:55] LABS: HIV 2 AB Non-Reactive (Non-Reactive); HIV AB P24 Non-Reactive (Non-Reactive); HIV P24 AG Non-Reactive (Non-Reactive)
== END | disposition home or self-care (01) ==
LOC: LABWHC1 10:40
PROVIDERS: ATTEND Family Medicine Addiction Medicine
DX: B19.20 Unspecified viral hepatitis C without hepatic coma (principal)
CPT/HCPCS: 36415; 86780; 87390; 87522

== ENCOUNTER → 2025-04-11 | Outpatient (CLI) | payer MEDICARE, OTHER | END | disposition home or self-care (01) | LOC: LABWHC1 12:02 | PROVIDERS: ATTEND Nurse Practitioner Family | DX: Z53.9 Procedure and treatment not carried out, unspecified reason (principal) ==